=== PATIENT | female | born 1990 | race Caucasian/White ===

== ENCOUNTER 2018-08-22 10:10 | Emergency (ER) | payer OTHER ==
[~2018-08-22] VITALS: Ht 162.6 cm; Wt 89.8 kg
[~2018-08-22 10:10] MED LIST changes: -METOCLOPRAMIDE 5 MG/ML, 2ML ONE; -SODIUM CITRATE/CITRIC ACID 30 ML UDC ONE
[2018-08-22 10:30] VITALS: BP 138/74
--- NOTE | 2018-08-22 11:26 | NUR ---
PT TO ED ROOM 22 FROM LOBBY AT THIS TIME
--- NOTE | 2018-08-22 11:45 | NUR ---
MD MOTT AT BEDSIDE TO ASSESS PT
--- NOTE | 2018-08-22 11:56 | NUR ---
REPORT FROM BRANDY ARIAS, ASSUME CARE OF PT AT THIS TIME. UA ALREADY COMPLETED IN L&D, DR MOTT AWARE.
[2018-08-22 12:26] LABS: BASOPHILS # (AUTO) 0.05 x10^3/uL (0-0.1); BASOPHILS % (AUTO) 1 % (0-1); EOSINOPHILS # (AUTO) 0.03 x10^3/uL (0-0.4); EOSINOPHILS % (AUTO) 0 % (1-7); LYMPHOCYTES # (AUTO) 1.33 x10^3/uL (1-3.4); LYMPHOCYTES % (AUTO) 13 % (22-44); MD NO; MEAN CORPUSCULAR HEMOGLOBIN 32.9 pg (27.0-34.8); MEAN CORPUSCULAR HGB CONC 33.5 g/dL (32.4-35.8); MEAN CORPUSCULAR VOLUME 98.3 fL (80-100); MEAN PLATELET VOLUME 7.4 fL (7.4-10.4); MONOCYTES % (AUTO) 8 % (2-9); NEUTROPHILS # (AUTO) 8.41 x10^3/uL (1.8-6.8); NEUTROPHILS % (AUTO) 79 % (42-75); PLATELET COUNT 301 x10^3/uL (130-400); RED BLOOD COUNT 3.83 x10^6/uL (3.82-5.3); RED CELL DISTRIBUTION WIDTH 14.8 % (9.6-15.2)
[2018-08-22 12:39] LABS: ALBUMIN 2.4 g/dL (3.4-5.0); ANION GAP 6 mmol/L (5-15); CALCIUM 8.7 mg/dL (8.5-10.1); CHLORIDE 107 mmol/L (98-107)
[2018-08-22 12:43] LABS: ALANINE AMINOTRANSFERASE 12 U/L (12-78); ALKALINE PHOSPHATASE 150 U/L (45-117); BILIRUBIN,TOTAL 0.2 mg/dL (0.2-1.0); CREATININE 0.37 mg/dL (0.55-1.02); TOTAL PROTEIN 6.3 g/dL (6.4-8.2)
== END 2018-08-22 13:27 | disposition home or self-care (01) ==
LOC: ED 12:01
DX: G56.03 Carpal tunnel syndrome, bilateral upper limbs (principal); M25.512 Pain in left shoulder; M25.511 Pain in right shoulder
CPT/HCPCS: 36415; 80053; 85025; 99283

== ENCOUNTER → 2018-08-22 | Outpatient (CLI) | payer OTHER ==
[~2018-08-22] VITALS: Ht 162.6 cm; Wt 90.4 kg
[~2018-08-22] MED LIST: METOCLOPRAMIDE 5 MG/ML, 2ML ONE; PNV1TABL4 PO; RANI75TA12 PO; SODIUM CITRATE/CITRIC ACID 30 ML UDC ONE
[2018-08-22 10:17] LABS: MICROSCOPIC INDICATED
== END | disposition home or self-care (01) ==
LOC: LDOP 09:01
PROVIDERS: ATTEND Obstetrics & Gynecology
DX: O26.893 Other specified pregnancy related conditions, third trimester (principal); R10.9 Unspecified abdominal pain; Z3A.37 37 weeks gestation of pregnancy
CPT/HCPCS: 59025; 81001; 87086; 99201; G0463

== ENCOUNTER 2018-09-02 14:42 | Outpatient (CLI) | payer OTHER ==
[~2018-09-02] VITALS: Ht 162.6 cm; Wt 91.3 kg
[2018-09-02 15:28] VITALS: BP 122/63
[2018-09-07] MEDS ORDERED: IBUP-1223 PO (10:16)
[2018-09-07] MEDS ORDERED: OXYC-302 PO (10:16)
== END 2018-09-02 16:10 | disposition home or self-care (01) ==
LOC: LDOP 14:42
PROVIDERS: ATTEND Obstetrics & Gynecology
DX: O26.893 Other specified pregnancy related conditions, third trimester (principal); M54.9 Dorsalgia, unspecified; M25.559 Pain in unspecified hip; R10.9 Unspecified abdominal pain; Z3A.39 39 weeks gestation of pregnancy; Z87.891 Personal history of nicotine dependence
CPT/HCPCS: 59025; 99211; G0463

== ENCOUNTER 2020-07-02 17:23 | Outpatient (CLI) | payer MEDICAID, OTHER ==
[~2020-07-02] VITALS: Ht 162.6 cm; Wt 68.2 kg
[~2020-07-02 17:23] MED LIST changes: +IBUP-1223 PO; +OXYC1TAB14 PO; +RANI-244 PO; -RANI75TA12 PO
[2020-07-02 17:36] VITALS: BP 93/54
[2020-07-02 17:55] LABS: MICROSCOPIC NOT IND
[2020-07-02 18:12] LABS: AMPHETAMINE SCREEN, URINE Negative (Negative); BARBITURATE SCREEN, URINE Negative (Negative); BENZODIAZEPINE SCREEN, URINE Negative (Negative); CANNABINOID SCREEN, URINE Negative (Negative); COCAINE SCREEN, URINE Negative (Negative); METHADONE SCREEN, URINE Negative (Negative); OPIATE SCREEN, URINE Negative (Negative)
== END 2020-07-02 19:30 | disposition home or self-care (01) ==
LOC: LDOP 17:23
PROVIDERS: ATTEND Student in an Organized Health Care Education/Training Program
DX: O26.892 Other specified pregnancy related conditions, second trimester (principal); M54.5 Low back pain; Z3A.27 27 weeks gestation of pregnancy
CPT/HCPCS: 76815; 80307; 81003; 87086; 99201; 99211; G0463

== ENCOUNTER 2020-09-21 05:43 | Inpatient (IN) | payer MEDICAID ==
[~2020-09-21] VITALS: Ht 162.6 cm; Wt 80.5 kg
[2020-09-21] MEDS ORDERED: METOCLOPRAMIDE 5 MG/ML, 2ML IV ONE (06:30)
[2020-09-21] MEDS ORDERED: LACTATED RINGERS 1,000 ML IVBOLUS ONE (06:30)
[2020-09-21] MEDS ORDERED: SODIUM CITRATE/CITRIC ACID 30 ML UDC PO ONE (06:30)
[2020-09-21] MEDS ORDERED: NEWBORN KIT ONE (06:43)
[2020-09-21 06:44] LABS: BASOPHILS % (AUTO) 0 % (0-1); EOSINOPHILS % (AUTO) 1 % (1-7); LYMPHOCYTES % (AUTO) 15 % (22-44); MEAN CORPUSCULAR HEMOGLOBIN 32.1 pg (27.0-34.8); MEAN CORPUSCULAR HGB CONC 34.5 g/dL (32.4-35.8); MEAN PLATELET VOLUME 6.6 fL (7.4-10.4); MONOCYTES % (AUTO) 8 % (2-9); NEUTROPHILS % (AUTO) 76 % (42-75); PLATELET COUNT 291 x10^3/uL (130-400); RED BLOOD COUNT 3.49 x10^6/uL (3.82-5.3); RED CELL DISTRIBUTION WIDTH 13.2 % (9.6-15.2)
[2020-09-21] MEDS ORDERED: SODIUM CITRATE/CITRIC ACID 15 ML UDC ONE (06:44)
[2020-09-21] MEDS ORDERED: OXYTOCIN 30U/ 0.9% NaCL 500ML 500 ML ONE (06:44)
[2020-09-21 06:45] LABS: MD NO
[2020-09-21] MEDS ORDERED: CEFAZOLIN 1,000 MG ONE (07:11)
[2020-09-21] MEDS ORDERED: PHENYLEPHRINE 10 MG/ML ONE (07:11)
[2020-09-21] MEDS ORDERED: DEXAMETHASONE 4 MG/ML, 1ML ONE (07:11)
[2020-09-21] MEDS ORDERED: OXYTOCIN 10 UNITS/ML, 1ML ONE (07:11)
[2020-09-21] MEDS ORDERED: EPHEDRINE 50 MG/ML, 1ML ONE (07:11)
[2020-09-21] MEDS ORDERED: KETOROLAC 30 MG/1 ML ONE (07:11)
[2020-09-21] MEDS ORDERED: ONDANSETRON 2MG/ML, 2ML ONE (07:11)
[2020-09-21] MEDS ORDERED: FENTANYL PF 100 MCG/2ML ONE (07:11)
[2020-09-21] MEDS ORDERED: ALBUTEROL SULFATE 2.5 MG/3 ML NPPB PRN (07:30)
[2020-09-21] MEDS ORDERED: ONDANSETRON 2MG/ML, 2ML IVPush PRN (07:30)
[2020-09-21] MEDS ORDERED: hydrALAzine 20 MG/ML, 1ML IV PRN (07:30)
[2020-09-21] MEDS ORDERED: EPHEDRINE 50 MG/ML, 1ML IVPush PRN (07:30)
[2020-09-21] MEDS ORDERED: PROMETHAZINE 25 MG/ML, 1ML IV PRN (07:30)
[2020-09-21] MEDS ORDERED: FENTANYL PF 100 MCG/2ML IV PRN (07:30)
[2020-09-21] MEDS ORDERED: HYDROmorphone 2 MG/ML, 1ML IVPush PRN (07:30)
[2020-09-21] MEDS ORDERED: OXYcodone 5 MG/5 ML ORAL.SOL UDC PO PRN (07:30)
[2020-09-21] MEDS ORDERED: LABETALOL 5MG/ML, 20ML IV PRN (07:30)
[2020-09-21] MEDS ORDERED: HYDROcodone/APAP 7.5-325MG/15ML UDC PO PRN (07:30)
[2020-09-21] MEDS ORDERED: MEPERIDINE/PF 25MG/0.5ML IVPush PRN (07:30)
[2020-09-21] MEDS ORDERED: HYDROmorphone 2 MG/ML, 1ML ONE (07:54)
[2020-09-21] MEDS ORDERED: TRANEXAMIC ACID 1,000 MG in SODIUM CHLORIDE 0.9% 100 ML IVPB ONE (08:00)
[2020-09-21] MEDS ORDERED: BISACODYL 10 MG SUPP PR PRN (08:00)
[2020-09-21] MEDS: KETOROLAC 30 MG/1 ML IV SCH ×3 (08:00→19:47)
[2020-09-21] MEDS ORDERED: MISOPROSTOL 200 MCG TABLET PO PRN (08:00)
[2020-09-21] MEDS ORDERED: METOCLOPRAMIDE 5 MG/ML, 2ML IV PRN (08:00)
[2020-09-21] MEDS ORDERED: CARBOPROST TROMETHAMINE 250 MCG/ML, 1ML IM PRN (08:00)
[2020-09-21] MEDS ORDERED: GLYCERIN ADULT SUPP PR PRN (08:00)
[2020-09-21] MEDS: LACTATED RINGERS 1,000 ML IV SCH ×4 (08:00→18:00)
[2020-09-21] MEDS ORDERED: morphine SULFATE 10 MG/ML, 1ML IVPush PRN (08:00)
[2020-09-21] MEDS ORDERED: ONDANSETRON 2MG/ML, 2ML IV PRN (08:00)
[2020-09-21] MEDS ORDERED: ACETAMINOPHEN 325 MG TABLET PO PRN (08:00)
[2020-09-21] MEDS ORDERED: IBUPROFEN 800 MG TABLET PO PRN (08:00)
[2020-09-21] MEDS ORDERED: METHYLERGONOVINE 0.2 MG/ML IM PRN (08:00)
[2020-09-21] MEDS ORDERED: KETOROLAC 30 MG/1 ML IM SCH (08:00)
[2020-09-21] MEDS: OXYTOCIN 30U/ 0.9% NaCL 500ML 500 ML IV SCH ×2 (08:59→18:00)
[2020-09-21] MEDS: PRENATAL VIT/IRON/FA 1 EACH TABLET PO SCH (09:00)
[2020-09-21] MEDS ORDERED: DIPHENHYDRAMINE 50 MG/ML, 1ML ONE ×2 (09:27→09:28)
[2020-09-21] MEDS ORDERED: DIPHENHYDRAMINE 50 MG/ML, 1ML IVPush PRN (10:00)
[2020-09-21 11:15] VITALS: BP 112/71
[2020-09-21] MEDS: SIMETHICONE 80 MG CHEW TAB PO PRN ×2 (12:08→23:31)
[2020-09-21] MEDS: OXYcodone/APAP 5/325MG TABLET PO PRN ×2 (12:09→23:32)
[2020-09-21] MEDS: OXYcodone IR 5MG TABLET PO PRN ×2 (12:49→16:56)
[2020-09-21 15:00] VITALS: BP 105/65
[2020-09-21 16:14] LABS: BASOPHILS % (AUTO) 0 % (0-1); EOSINOPHILS % (AUTO) 0 % (1-7); LYMPHOCYTES % (AUTO) 8 % (22-44); MEAN CORPUSCULAR HGB CONC 34.6 g/dL (32.4-35.8); MEAN PLATELET VOLUME 6.7 fL (7.4-10.4); MONOCYTES % (AUTO) 5 % (2-9); NEUTROPHILS % (AUTO) 87 % (42-75); PLATELET COUNT 291 x10^3/uL (130-400); RED BLOOD COUNT 3.22 x10^6/uL (3.82-5.3); RED CELL DISTRIBUTION WIDTH 13.1 % (9.6-15.2)
[2020-09-21 16:18] LABS: MD NO
[2020-09-21] MEDS: ACETAMINOPHEN 325 MG TABLET PO PRN (16:55)
[2020-09-21 19:30] VITALS: BP 110/70
[2020-09-21] MEDS: DOCUSATE 100 MG CAPSULE PO PRN (23:31)
[2020-09-21 23:40] VITALS: BP 106/67
[2020-09-22] MEDS: KETOROLAC 30 MG/1 ML IV SCH ×4 (02:04→21:27)
[2020-09-22 03:00] VITALS: BP 101/64
[2020-09-22] MEDS: OXYTOCIN 30U/ 0.9% NaCL 500ML 500 ML IV SCH ×2 (04:00→14:00)
[2020-09-22] MEDS: LACTATED RINGERS 1,000 ML IV SCH ×5 (04:00→16:00)
[2020-09-22] MEDS: OXYcodone/APAP 5/325MG TABLET PO PRN ×3 (05:28→21:28)
[2020-09-22] MEDS: PRENATAL VIT/IRON/FA 1 EACH TABLET PO SCH (07:58)
[2020-09-22] MEDS: SIMETHICONE 80 MG CHEW TAB PO PRN ×3 (07:58→19:42)
[2020-09-22] MEDS: DOCUSATE 100 MG CAPSULE PO PRN ×2 (07:58→19:41)
[2020-09-22 12:10] VITALS: BP 101/66
[2020-09-22] MEDS: ACETAMINOPHEN 325 MG TABLET PO PRN (12:49)
[2020-09-22] MEDS: OXYcodone IR 5MG TABLET PO PRN (12:51)
[2020-09-22 15:42] VITALS: BP 108/69
[2020-09-22 19:40] VITALS: BP 114/75
[2020-09-23] MEDS ORDERED: IBUPROFEN 600 MG TABLET PO PRN (02:01)
[2020-09-23] MEDS: KETOROLAC 30 MG/1 ML IV SCH (03:32)
[2020-09-23] MEDS: OXYcodone/APAP 5/325MG TABLET PO PRN ×3 (03:34→12:36)
[2020-09-23] MEDS: LACTATED RINGERS 1,000 ML IV SCH ×4 (07:49→10:00)
[2020-09-23 08:05] VITALS: BP 108/65
[2020-09-23] MEDS: DOCUSATE 100 MG CAPSULE PO PRN (08:53)
[2020-09-23] MEDS: SIMETHICONE 80 MG CHEW TAB PO PRN (08:53)
[2020-09-23] MEDS: PRENATAL VIT/IRON/FA 1 EACH TABLET PO SCH (08:53)
[2020-09-23] MEDS: OXYTOCIN 30U/ 0.9% NaCL 500ML 500 ML IV SCH ×2 (10:00)
== END 2020-09-23 14:20 | disposition home or self-care (01) | DRG 785 ==
LOC: LDOP 05:43 → LDIP 05:44 → 2NW 10:17
PROVIDERS: ADMIT Student in an Organized Health Care Education/Training Program; ATTEND Student in an Organized Health Care Education/Training Program
PROC: 10D00Z1 Extraction of Products of Conception, Low, Open Approach (ICD-10-PCS; principal; 2020-09-21)
PROC: 0UB70ZZ Excision of Bilateral Fallopian Tubes, Open Approach (ICD-10-PCS; 2020-09-21)
DX: O34.211 Maternal care for low transverse scar from previous cesarean delivery (principal); O99.344 Other mental disorders complicating childbirth; F32.9 Major depressive disorder, single episode, unspecified; Z3A.39 39 weeks gestation of pregnancy; Z37.0 Single live birth; Z80.3 Family history of malignant neoplasm of breast; Z30.2 Encounter for sterilization; Z82.49 Family history of ischemic heart disease and other diseases of the circulatory system; Z83.3 Family history of diabetes mellitus; G89.18 Other acute postprocedural pain; Z20.822 Contact with and (suspected) exposure to COVID-19
CPT/HCPCS: 36415; 85025; 86592; 86850; 86900; 87635; 87806; 88302; G0378; J0690; J1100; J1170; J1885; J2405; J3010; G0475; J2370; J2590; J2765